=== PATIENT | female | born 1980 | race African-American/Black ===

== ENCOUNTER 2020-08-08 08:17 | Outpatient (CLI) | payer BC | END 2020-08-08 08:18 | disposition home or self-care (01) | LOC: CSHRAD 08:17 | PROVIDERS: ATTEND Family Medicine | DX: R01.1 Cardiac murmur, unspecified (principal); I49.3 Ventricular premature depolarization | CPT/HCPCS: 93005; 93306 ==

== ENCOUNTER 2023-05-09 15:37 | Outpatient (CLI) | payer BC | END 2023-05-09 15:38 | disposition home or self-care (01) | LOC: CSHLAB 15:37 | PROVIDERS: ATTEND Obstetrics & Gynecology | DX: Z01.812 Encounter for preprocedural laboratory examination (principal); D25.0 Submucous leiomyoma of uterus; Z53.9 Procedure and treatment not carried out, unspecified reason | CPT/HCPCS: 84703; 85027; 86850; 86870; 86900; 86901; 86905 ==

== ENCOUNTER 2023-05-11 07:33 | Day surgery (SDC) | payer BC ==
[2023-05-09 12:38] VITALS: BMI 37.9
[2023-05-09 16:43] LABS: BHCG - Serum Negative (NEGATIVE); Pregs Control Background? CLEAR/WHITE (CLR/WHITE); Pregs Control Bar Appear? YES (CONTROL BAR)
[2023-05-09 19:37] LABS: Hemoglobin 11.6 g/dL (12.0-15.5); Mean Corpuscular HGB CONC 30.5 g/dL (32.0-36.0); Mean Corpuscular Hemoglobin 25.8 pg (27.0-33.0); Mean Corpuscular Volume 84.4 fl (81.6-98.3); Mean Platelet Volume 10.7 fl (7.4-10.4); Platelet Count 273 10x3/uL (150-450); White Blood Cell (WBC) Count 6.7 10x3/uL (3.5-10.5)
[2023-05-11] MEDS ORDERED: Gabapentin 300 MG CAP ONE (07:55)
[2023-05-11] MEDS ORDERED: CeleCOXIB 100 MG CAP ONE (07:55)
[2023-05-11] MEDS ORDERED: Famotidine/PF 20 mg/2ml Vial ONE (07:56)
[2023-05-11] MEDS ORDERED: Midazolam HCl 2 mg/2 ml Vial ONE ×2 (09:03→09:21)
[2023-05-11] MEDS ORDERED: EPINEPHrine 1 MG/ML VIAL ONE (09:12)
[2023-05-11] MEDS ORDERED: Bupivacaine PF 0.5% 30 ML VIAL ONE (09:12)
[2023-05-11] MEDS ORDERED: Dexamethasone 20 MG/5 ML VIAL ONE (09:20)
[2023-05-11] MEDS ORDERED: Ondansetron PF 4 MG/2 ML Vial ONE (09:20)
[2023-05-11] MEDS ORDERED: Lidocaine 1% PF 5 ML VIAL ONE (09:20)
[2023-05-11] MEDS ORDERED: Rocuronium Bromide 10 MG/ML (10ML VIAL) ONE (09:20)
[2023-05-11] MEDS ORDERED: Fentanyl 250 MCG/5 ML VIAL ONE (09:21)
[2023-05-11] MEDS ORDERED: PROPOFOL 20 ML ONE ×2 (09:21→10:21)
[2023-05-11] MEDS ORDERED: CEFAZOLIN 2 GM VIAL ONE (09:22)
[2023-05-11] MEDS ORDERED: fentaNYL 50 mcg/mL 1 mL Vial ONE (11:38)
[2023-05-11] MEDS ORDERED: HYDROcodone/Acetaminophen 5/325 mg Tablet ONE (12:23)
== END 2023-05-11 14:10 | disposition home or self-care (01) ==
LOC: CSHSDC 07:33
PROVIDERS: ATTEND Obstetrics & Gynecology
PROC: 0UT90ZZ Resection of Uterus, Open Approach (ICD-10-PCS; principal; 2023-05-11)
PROC: 0UT70ZZ Resection of Bilateral Fallopian Tubes, Open Approach (ICD-10-PCS; principal; 2023-05-11)
DX: D25.0 Submucous leiomyoma of uterus (principal); N88.8 Other specified noninflammatory disorders of cervix uteri; N72 Inflammatory disease of cervix uteri; N87.0 Mild cervical dysplasia; D50.0 Iron deficiency anemia secondary to blood loss (chronic); I10 Essential (primary) hypertension; E78.5 Hyperlipidemia, unspecified; E66.9 Obesity, unspecified; N92.0 Excessive and frequent menstruation with regular cycle; Z68.39 Body mass index [BMI] 39.0-39.9, adult; Z88.0 Allergy status to penicillin; Z79.899 Other long term (current) drug therapy
CPT/HCPCS: 84703; 85027; 86850; 86870; 86900; 86901; 86905; 88307; C1889; J0171; J1100; J2250; J2405; J2704; J3010; S0020; S0028

== ENCOUNTER 2025-02-15 14:53 | Outpatient (CLI) | payer BC | END 2025-02-15 14:54 | disposition home or self-care (01) | LOC: CSHMAMMO 14:53 | PROVIDERS: ATTEND Obstetrics & Gynecology | DX: R92.8 Other abnormal and inconclusive findings on diagnostic imaging of breast (principal); N60.02 Solitary cyst of left breast | CPT/HCPCS: G0279 ==